=== PATIENT | male | born 1995 | race Caucasian/White ===

== ENCOUNTER 2019-04-16 03:57 | Emergency (ER) | payer OTHER ==
[2019-04-16] MEDS ORDERED: Lidocaine 2% EPI 1:200000 MPF* 10 ML VIAL INJ ONE (04:10)
--- NOTE | 2019-04-16 04:12 | ED ---
Head Injury - HPI Summary HPI Summary: This patient is a 23 year old M presenting to ED with a chief complaint of right druze laceration since 129 this morning. Patient was at [place] when he tripped and fell, hitting his head on a rock. He denies LOC. He also reports left foot pain described as pressure at the top of the foot only upon walking. Patient has been drinking alcohol tonight. The patient rates the pain 6/10 in severity. Symptoms aggravated by nothing. Symptoms alleviated by nothing. Patient denies nausea. - History Of Current Complaint Chief Complaint: EDHeadInjury Stated Complaint: FELL REALLY HARD PER PT Time Seen by Provider: 04/16/19 04:05 Hx Obtained From: Patient Mechanism Of Injury: Blunt Trauma - Hit on rocks Onset/Duration: Started Hours Ago - 129 today, Traumatic Onset of Pain: Post Accident Severity Currently: Moderate Severity Initially: Moderate Pain Intensity: 6 Pain Scale Used: 0-10 Numeric Location of Head Injury: Other: - R druze Aggravating Factor(s): Other: - Nothing Alleviating Factor(s): Other: - Nothing Associated Signs And Symptoms: Negative - LOC, nausea - Allergies/Home Medications Allergies/Adverse Reactions: Allergies Allergy/AdvReac Type Severity Reaction Status Date / Time No Known Allergies Allergy Verified 04/16/19 04:03 PMH/Surg Hx/FS Hx/Imm Hx Sensory History: Denies: Hx Legally Blind, Hx Deafness Opthamlomology History: Denies: Hx Legally Blind EENT History: Denies: Hx Deafness - Surgical History Surgery Procedure, Year, and Place: Denies Infectious Disease History: No Infectious Disease History: Denies: Traveled Outside the [place] in Last 30 Days - Family History Known Family History: Positive: Non-Contributory - Social History Alcohol Use: Weekly Hx Substance Use: No Substance Use Type: Reports: None Hx Tobacco Use: No Smoking Status (MU): Never Smoked Tobacco Review of Systems Negative: Nausea Musculoskeletal: Other - L foot pain Skin: Other - R druze laceration Neurological: Negative - LOC Physical Exam - Summary Physical Exam Summary: Appearance: Well-appearing, Well-nourished, lying in bed comfortable Skin: 2cm laceration lateral to the right eyebrow. Eyes: sclera anicteric, no conjunctival pallor ENT: mucous membranes moist Neck: deferred Respiratory: No signs of respiratory distress Cardiovascular: Appears well perfused, pulses are nml Abdomen: deferred Musculoskeletal: Moving all 4 extremities without obvious discomfort Neurological: Awake and alert, mentation is normal, speech is fluent and appropriate Psychiatric: affect is normal, does not appear anxious or depressed Triage Information Reviewed: Yes Vital Signs On Initial Exam: Initial Vitals Temp Pulse Resp BP Pulse Ox 97.8 F 84 20 154/79 97 04/16/19 03:59 04/16/19 03:59 04/16/19 03:59 04/16/19 03:59 04/16/19 03:59 Vital Signs Reviewed: Yes Procedures - Laceration/Wound Repair 1 Location: face - R druze Description: Linear Anesthesia: 2.0%, Lido Betadine Prep?: Yes Laceration/Wound Explored: clean Closure: Single Layer - 5 stitches Diagnostics - Vital Signs Vital Signs Temp Pulse Resp BP Pulse Ox 04/16/19 03:59 97.8 F 84 20 154/79 97 - Laboratory Lab Statement: Any lab studies that have been ordered have been reviewed, and results considered in the medical decision making process. Head Injury Course/Dx Course Of Treatment: This patient is a 23 year old M presenting to ED with a chief complaint of right druze laceration since 0130 this morning. I sutured the laceration without complication and educated the patient on proper wound care. Patient will be discharged home with dx of facial laceration. Patient understands and agrees with this plan. - Diagnoses Provider Diagnoses: Facial laceration Discharge - Sign-Out/Discharge Documenting (check all that apply): Patient Departure - Discharge Patient Received Moderate/Deep Sedation with Procedure: No - Discharge Plan Condition: Stable Disposition: HOME Patient Education Materials: Care For Your Stitches (ED) - Attestation Statements Document Initiated by Scribe: Yes Documenting Scribe: Tony Zuñiga Provider For Whom Scribe is Documenting (Include Credential): Yohan King MD Scribe Attestation: I, Tony Zuñiga, scribed for Yohan King MD on 04/16/19 at 0912. Status of Scribe Document: Ready
[2019-04-16 05:21] VITALS: BP 127/86
== END 2019-04-16 05:20 | disposition home or self-care (01) ==
LOC: ED 03:57
DX: S01.81XA Laceration without foreign body of other part of head, initial encounter (principal); M79.672 Pain in left foot; W01.10XA Fall on same level from slipping, tripping and stumbling with subsequent striking against unspecified object, initial encounter; Y92.838 Other recreation area as the place of occurrence of the external cause
CPT/HCPCS: 12011; 99281